=== PATIENT | female | born 1980 | race Caucasian/White ===

== ENCOUNTER 2023-10-07 17:08 | Inpatient (IN) | payer BC ==
[2023-10-07 17:30] LABS: Basophils # (A) 0.1 k/uL (0-0.2); Basophils % (A) 1 %; Eosinophils # (A) 0.3 k/uL (0-0.7); Eosinophils % (A) 3 %; HCT 39.7 % (34.0-46.0); HGB 12.5 gm/dL (11.4-16.0); Lymphocytes # (A) 2.2 k/uL (1.0-4.8); Lymphocytes % (A) 23 %; MCH 26.4 pg (25.0-35.0); MCHC 31.5 g/dL (31.0-37.0); MCV 83.6 fL (80.0-100.0); Mean Platelet Volume 7.9; Monocytes # (A) 0.5 k/uL (0-1.0); Monocytes % (A) 5 %; Neutrophils # (A) 6.3 k/uL (1.3-7.7); Neutrophils % (A) 67 %; Platelet Count 250 k/uL (150-450); RBC 4.75 m/uL (3.80-5.40); RDW 14.9 % (11.5-15.5); WBC 9.4 k/uL (3.8-10.6)
[2023-10-07 17:40] LABS: INR 0.9 (<1.2); Partial Thromboplastin Time 24.5 sec (22.0-30.0); Prothrombin Time 10.1 sec (10.0-12.5)
[2023-10-07 17:41] LABS: ALT 23 U/L (4-34); AST 31 U/L (14-36); African American GFR (CKD) >90 (>60 ml/min/1.73 sqM); Albumin 4.4 g/dL (3.5-5.0); Alkaline Phosphatase 73 U/L (38-126); Anion Gap 6 mmol/L; Blood Urea Nitrogen 5 mg/dL (7-17); Carbon Dioxide 25 mmol/L (22-30); Chloride 108 mmol/L (98-107); Glucose 110 mg/dL (74-99); Magnesium 1.7 mg/dL (1.6-2.3); Non-African American GFR(CKD) >90 (>60 ml/min/1.73 sqM); Potassium 4.1 mmol/L (3.5-5.1); Sodium 139 mmol/L (137-145); Total Bilirubin 0.5 mg/dL (0.2-1.3); Total Protein 7.2 g/dL (6.3-8.2)
[2023-10-07] MEDS ORDERED: ASPIRIN 81 MG PO STA (17:55)
--- NOTE | 2023-10-07 17:55 | ED ---
Chest Pain HPI - General Source: patient, RN notes reviewed Mode of arrival: ambulatory Limitations: no limitations <Charisse Ross - Last Filed: 10/07/23 17:53> - General Source: RN notes reviewed, old records reviewed Mode of arrival: ambulatory Limitations: no limitations - History of Present Illness MD Complaint: chest pain, other (Lightheadedness and shortness of breath) -: days(s) Pain Location: left chest Pain Radiation: jaw/teeth Severity: moderate Severity scale (1-10): 4 Improves With: nothing Worsens With: nothing Anginal Symptoms: sense of impending doom Other Symptoms: palpitations Treatments Prior to Arrival: none <Raghav Atwood - Last Filed: 10/07/23 19:30> - General Chief Complaint: Chest Pain Stated Complaint: chest pain Time Seen by Provider: 10/07/23 17:23 - History of Present Illness Initial Comments: Rafael alvarez is a 43-year-old female with no significant past medical history presents emergency department chief complaint of midsternal chest pain that started yesterday. Patient states that this pain was described as a squeezing and stabbing sensation that lasted for about 2 hours and radiated into her jaw. Patient states that the pain subsided yesterday and returned today. Was advised by her primary care provider to report to the emergency department for further evaluation. Patient states that she has a family history of heart attack in her mother and father in their 40s. (Charisse Ross) This is a 43-year-old female to the ER for evaluation patient comes from her primary care provider today and sent to the ER for evaluation, patient started with chest pain and left-sided arm pain some shortness of breath and jaw pain that started yesterday and persisted. Patient does have a family history of heart attack in her mom in early 40s (Raghav Atwood) - Related Data Home Medications Medication Instructions Recorded Confirmed No Known Home Medications 10/07/23 10/07/23 Allergies Allergy/AdvReac Type Severity Reaction Status Date / Time azithromycin Allergy Swelling Verified 10/07/23 18:59 Review of Systems ROS Other: All systems not noted in ROS Statement are negative. <Charisse Ross - Last Filed: 10/07/23 17:53> ROS Other: All systems not noted in ROS Statement are negative. <Raghav Atwood - Last Filed: 10/07/23 19:30> ROS Statement: Those systems with pertinent positive or pertinent negative responses have been documented in the HPI. EKG Findings - EKG Comments: EKG Findings:: EKG is sinus bradycardia 56 TN 143 QRS [address] depression V3 456 <Raghav Atwood - Last Filed: 10/07/23 19:30> Past Medical History Past Medical History: No Reported History History of Any Multi-Drug Resistant Organisms: None Reported Past Surgical History: No Surgical Hx Reported Past Psychological History: No Psychological Hx Reported Smoking Status: Current every day smoker Past Alcohol Use History: None Reported Past Drug Use History: Marijuana <LesliecooperCharisse - Last Filed: 10/07/23 17:53> General Exam Limitations: no limitations <Charisse Ross - Last Filed: 10/07/23 17:53> General appearance: alert, in no apparent distress Head exam: Present: atraumatic, normocephalic, normal inspection Eye exam: Present: normal appearance, PERRL, EOMI. Absent: scleral icterus, conjunctival injection, periorbital swelling ENT exam: Present: normal exam, mucous membranes moist Neck exam: Present: normal inspection. Absent: tenderness, meningismus, lymphadenopathy Respiratory exam: Present: normal lung sounds bilaterally. Absent: respiratory distress, wheezes, rales, rhonchi, stridor Cardiovascular Exam: Present: regular rate, normal rhythm, normal heart sounds. Absent: systolic murmur, diastolic murmur, rubs, gallop, clicks GI/Abdominal exam: Present: soft, normal bowel sounds. Absent: distended, tenderness, guarding, rebound, rigid Extremities exam: Present: normal inspection, full ROM, normal capillary refill. Absent: tenderness, pedal edema, joint swelling, calf tenderness Back exam: Present: normal inspection Neurological exam: Present: alert, oriented X3, CN II-XII intact Psychiatric exam: Present: normal affect, normal mood Skin exam: Present: warm, dry, intact, normal color. Absent: rash <Raghav Atwood - Last Filed: 10/07/23 19:30> - General Exam Comments Initial Comments: Visual Physical Exam Vital signs reviewed General: Well-appearing, nontoxic, no acute distress. Head: Normocephalic, atraumatic Eyes: PERRLA, EOMI ENT: Airway patent Chest: Nonlabored breathing Skin: No visual rash, normal skin tone Neuro: Alert and oriented 3 Musculoskeletal: No gross abnormalities (Stieler,Charisse) Course <Raghav Atwood - Last Filed: 10/07/23 19:30> Vital Signs 10/07/23 10/07/23 10/07/23 17:25 18:17 18:19 Temperature 99.2 F Pulse Rate 59 L 72 Pulse Rate [ 62 Social Work Administrator ] Respiratory 18 20 Rate Blood Pressure 180/95 157/100 O2 Sat by Pulse 99 99 Oximetry 10/07/23 10/07/23 10/07/23 18:30 18:47 19:00 Temperature Pulse Rate 72 Pulse Rate [ 68 Social Work Administrator ] Respiratory 20 20 Rate Blood Pressure 186/98 O2 Sat by Pulse 98 Oximetry 10/07/23 19:09 Temperature Pulse Rate 66 Pulse Rate [ Social Work Administrator ] Respiratory 20 Rate Blood Pressure 167/106 O2 Sat by Pulse 98 Oximetry - Reevaluation(s) Reevaluation #1: 10/07/23 19:29 Medical records reviewed (Raghav Atwood) Reevaluation #2: 10/07/23 19:29 Patient still with chest pain here in the ER left-sided jaw pain Patient does have multiple episodes of ventricular tachycardia nonsustained here in the emergency department with symptoms of near syncope syncope (Raghav Atwood) Reevaluation #3: 10/07/23 19:30 Patient informed of results and questions answered (Raghav Atwood) Reevaluation #4: Was pt. sent in by a medical professional or institution (, PA, RECREATIONAL SPORTS DIRECTOR, urgent care, hospital, or alf...) When possible be specific @ -no Did you speak to anyone other than the patient for history (EMS, parent, family, police, friend...)? What history was obtained from this source @ -no Did you review nursing and triage notes (agree or disagree)? Why? @ -agree Are old charts reviewed (outside hosp., previous admission, EMS record, old EKG, old radiological studies, urgent care reports/EKG's, alf records)? Report findings @ -yes Differential Diagnosis (chest pain, altered mental status, abdominal pain women, abdominal pain men, vaginal bleeding, weakness, fever, dyspnea, syncope, headache, dizziness, GI bleed, back pain, seizure, CVA, palpatations, mental health, musculoskeletal)? @ -prior EKG interpreted by me (3pts min.). @ -yes X-rays interpreted by me (1pt min.). @ -yes negative for acute disease CT interpreted by me (1pt min.). @ -no U/S interpreted by me (1pt. min.). @ -no What testing was considered but not performed or refused? (CT, X-rays, U/S, labs)? Why? @ -none What meds were considered but not given or refused? Why? @ -none Did you discuss the management of the patient with other professionals (professionals i.e. , PA, RECREATIONAL SPORTS DIRECTOR, lab, RT, psych nurse, family welfare social work professor, social science manager, teacher, business banking officer, showcase trimmer)? Give summary @ -no Was smoking cessation discussed for >3mins.? @ -no Was critical care preformed (if so, how long)? @ -no Were there social determinants of health that impacted care today? How? (Homelessness, low income, unemployed, alcoholism, drug addiction, transportation, low edu. Level, literacy, decrease access to med. care, senior care, rehab)? @ -none Was there de-escalation of care discussed even if they declined (Discuss DNR or withdrawal of care, Hospice)? DNR status @ -no What co-morbidities impacted this encounter? (DM, HTN, Smoking, COPD, CAD, Cancer, CVA, ARF, Chemo, Hep., AIDS, mental health diagnosis, sleep apnea, morbid obesity)? @ -none Was patient admitted / discharged? Hospital course, mention meds given and route, prescriptions, significant lab abnormalities, going to OR and other pertinent info. @ - Undiagnosed new problem with uncertain prognosis? @ -no Drug Therapy requiring intensive monitoring for toxicity (Heparin, Nitro, Insulin, Cardizem)? @ -no Were any procedures done? @ -no Diagnosis/symptom? @ - Acute, or Chronic, or Acute on Chronic? @ -Acute Uncomplicated (without systemic symptoms) or Complicated (systemic symptoms)? @ -Complicated Side effects of treatment? @ -no Exacerbation, Progression, or Severe Exacerbation? @ -exacerbation Poses a threat to life or bodily function? How? (Chest pain, [place], [place], pneumonia, PE, COPD, DKA, ARF, appy, cholecystitis, CVA, Diverticulitis, Homicidal, Suicidal, threat to staff... and all critical care pts) @ -yes (Raghav Atwood) Reevaluation #5: Differential Chest Pain: Stable Angina, Unstable Angina, STEMI, NSTEMI Aortic Dissection, Pneumothorax, Musculoskeletal, Esophageal Spasm GERD, Cholecystitis, Pancreatitis, Zoster, this is not meant to be an all-inclusive list. (Raghav Atwood) - Consultations Consultation #1: Spoke with cardiology who will take this patient to the catheter lab (Raghav Atwood) Consultation #2: Spoke with [facility] who agrees to admit this patient (Raghav Atwood) Chest Pain MDM <Charisse Ross - Last Filed: 10/07/23 17:53> - MDM I completed the quick note portion of this chart signed Charisse Ross PA-C (Charisse Ross) Critical Care Time Critical Care Time: Yes Total Critical Care Time: 31 <Raghav Atwood - Last Filed: 10/07/23 19:30> Disposition <Charisse Ross - Last Filed: 10/07/23 17:53> Is patient prescribed a controlled substance at d/c from ED?: No Time of Disposition: 18:35 <Raghav Atwood - Last Filed: 10/07/23 19:30> Clinical Impression: Acute non-ST elevation myocardial infarction (NSTEMI), Ventricular tachycardia, Chest pain Disposition: ADMITTED IP TO THIS HOSP Condition: Critical
--- NOTE | 2023-10-07 18:06 | XR ---
EXAMINATION TYPE: XR chest 2V DATE OF EXAM: 10/07/2023 COMPARISON: NONE HISTORY: Chest pain TECHNIQUE: Frontal and lateral views of the chest are obtained. FINDINGS: There is no focal air space opacity, pleural effusion, or pneumothorax seen. The cardiac silhouette size is within normal limits. The osseous structures are intact. IMPRESSION: No acute cardiopulmonary process.
[2023-10-07] MEDS: MORPHINE SULFATE 4 MG/ML SYRINGE IV PRN (18:40)
[2023-10-07] MEDS: HEPARIN SOD,PORK IN 0.45% NACL 25,000 UNIT in 0.45% NACL 1 250ML.BAG IV SCH (18:41)
[2023-10-07] MEDS: HEPARIN SODIUM 1,000 UN/ML (10ML VL) IV ONE ×2 (18:43→19:51)
[2023-10-07] MEDS: NITROGLYCERIN OINT 1 INCH/GM PACKET TOPICAL STA (18:45)
[2023-10-07] MEDS: AMIODARONE 360 MG in DEXTROSE 5% IN WATER 200 ML IV ONE (18:51)
[2023-10-07] MEDS: DEXTROSE 5% IN WATER 100 ML with AMIODARONE 150 MG IV ONE (18:51)
[2023-10-07] MEDS: NITROGLYCERIN SL TABS 0.4 MG TAB SUBLINGUAL PRN (19:05)
[2023-10-07] MEDS: ASPIRIN 81 MG PO STA (19:12)
[2023-10-07] MEDS ORDERED: HEPARIN SODIUM 1,000 UN/ML (10ML VL) ONE (19:28)
[2023-10-07] MEDS ORDERED: fentaNYL (PF) 50 MCG/ML 2 ML AMP ONE (19:28)
[2023-10-07] MEDS ORDERED: VERAPAMIL 2.5 MG/ML 2 ML AMP ONE (19:28)
[2023-10-07] MEDS ORDERED: LIDOCAINE 1% INJ 10MG/ML (20 ML MDV) ONE (19:28)
--- NOTE | 2023-10-07 19:40 | P.CRDCN ---
History of Present Illness Consult date: 10/07/23 History of present illness: History of Present Illness: The patient is a 43-year-old female with a history of chronic tobacco use and a strong family history of premature CAD in her mother at the age of 42 who has not been followed by a physician on a regular basis who started complaining of chest discomfort yesterday associated with dyspnea, at rest. The pain got be tter to recur today. She was seen by Dr. Tovar and referred to the emergency room. In the emergency room she had a run of nonsustained VT and mild elevation of the troponin. She is average in her exercise tolerance and has no exertional chest discomfort on a regular basis and no change in her breathing. She has no history of PND, orthopnea or peripheral edema. She has no history of dizziness, palpitations or syncope. Her EKG showed ST segment depression anteriorly and inferior leads. In the cardiac catheterization laboratory she still has some discomfort, better. Medications: None Review of Systems: Respiratory: No history of asthma, bronchitis or recent cough. GI: No nausea or vomiting . No history of peptic ulcer disease. No recent GI bleed. : No hematuria or dysuria. Nervous System: No stroke or seizure. Physical Examination: 43-year-old female, alert oriented no apparent distress,Blood pressure 186/98, Heart rate 70 Head: Normocephalic. Eyes: Sclerae nonicteric. Neck: Good carotid upstroke, no bruit, no jugular venous distention. Lungs: Clear to auscultation. Heart: Regular rate and rhythm, S1-S2, no S3, no rub. No murmur. Abdomen: Soft nontender, positive bowel sounds no organomegaly. Extremities: No edema, intact distal pulses. Labs: Potassium 4.1, BUN 5, creatinine 1.56, hemoglobin 12.5, troponin 1.820. Chest x-ray with no acute infiltrate EKG: Sinus mechanism with mild ST segment depression in V2 to V6 and in the inferior leads Impression: 1. Non-STEMI, rule out posterior myocardial infarction 2. Chronic tobacco use 3. Episodes of nonsustained VT 4. Strong family history of premature CAD Plan: 1. I would recommend to proceed with coronary angiography, the procedure as well as the risks and the complications were discussed with the patient 2. Obtain an echocardiogram with Doppler 3. Smoking cessation 4. Depending on the results of her cardiac catheterization further recommendations will be made 5. Thank you for this consult we will follow with you Past Medical History Past Medical History: No Reported History History of Any Multi-Drug Resistant Organisms: None Reported Past Surgical History: No Surgical Hx Reported Past Psychological History: No Psychological Hx Reported Smoking Status: Current every day smoker Past Alcohol Use History: None Reported Past Drug Use History: Marijuana Medications and Allergies Home Medications Medication Instructions Recorded Confirmed Type No Known Home Medications 10/07/23 10/07/23 History Allergies Allergy/AdvReac Type Severity Reaction Status Date / Time azithromycin Allergy Swelling Verified 10/07/23 18:59 Physical Exam Vitals: Vital Signs Temp Pulse Pulse Resp BP Pulse Ox 10/07/23 19:09 66 20 167/106 98 10/07/23 19:00 20 10/07/23 18:47 72 20 186/98 98 10/07/23 18:30 68 10/07/23 18:19 62 10/07/23 18:17 72 20 157/100 99 10/07/23 17:25 99.2 F 59 L 18 180/95 99 Intake and Output 10/07/23 10/07/23 10/07/23 06:59 14:59 22:59 Other: Weight 86.636 kg Results 10/07/23 17:24 10/07/23 17:24 Cardiac Enzymes 10/07/23 10/07/23 Range/Units 17:24 17:24 AST 31 (14-36) U/L Troponin I 1.820 H* (0.000-0.034) ng/mL Coagulation 10/07/23 Range/Units 17:24 PT 10.1 (10.0-12.5) sec APTT 24.5 (22.0-30.0) sec CBC 10/07/23 Range/Units 17:24 WBC 9.4 (3.8-10.6) k/uL RBC 4.75 (3.80-5.40) m/uL Hgb 12.5 (11.4-16.0) gm/dL Hct 39.7 (34.0-46.0) % Plt Count 250 (150-450) k/uL Comprehensive Metabolic Panel 10/07/23 Range/Units 17:24 Sodium 139 (137-145) mmol/L Potassium 4.1 (3.5-5.1) mmol/L Chloride 108 H (98-107) mmol/L Carbon Dioxide 25 (22-30) mmol/L BUN 5 L (7-17) mg/dL Creatinine 0.56 (0.52-1.04) mg/dL Glucose 110 H (74-99) mg/dL Calcium 9.0 (8.4-10.2) mg/dL AST 31 (14-36) U/L ALT 23 (4-34) U/L Alkaline Phosphatase 73 (38-126) U/L Total Protein 7.2 (6.3-8.2) g/dL Albumin 4.4 (3.5-5.0) g/dL Current Medications Generic Name Dose Route Start Last Admin Trade Name Freq PRN Reason Stop Dose Admin Aspirin 325 mg 10/08/23 09:00 Aspirin 325 Mg Tab PO DAILY [facility] Heparin Sodium/Sodium Chloride 250 mls @ 9.963 mls/hr 10/07/23 18:30 10/07/23 18:41 25,000 unit/ Sodium Chloride IV 11.5 units/kg/hr .Q24H MANSOOR 9.963 mls/hr Administration Protocol 11.5 UNITS/KG/HR Amiodarone HCl 360 mg/ 200 mls @ 33.333 mls/hr 10/07/23 19:00 10/07/23 18:51 Dextrose/Water IV 10/08/23 00:59 1 mg/min .Q6H ONE 33.333 mls/hr Administration Protocol 1 MG/MIN Amiodarone HCl 450 mg/ 250 mls @ 16.667 mls/hr 10/08/23 01:00 Dextrose/Water IV 10/08/23 18:59 .Q15H MANSOOR Protocol 0.5 MG/MIN Metoprolol Tartrate 25 mg 10/07/23 21:00 Metoprolol Tartrate 25 Mg Tab PO BID [facility] Morphine Sulfate 4 mg 10/07/23 18:27 10/07/23 18:40 Morphine Sulfate 4 Mg/Ml Syringe IV 4 mg Q4HR PRN Administration Chest Pain Nitroglycerin 0.4 mg 10/07/23 18:27 10/07/23 19:08 Nitroglycerin Sl Tabs 0.4 Mg Tab SUBLINGUAL 0.4 mg Q5M PRN Administration Chest Pain Nitroglycerin 1 inch 10/08/23 00:00 Nitroglycerin Oint 1 Inch/Gm Packet TOPICAL Q6HR MAN[place]OR Intake and Output 10/07/23 10/07/23 10/07/23 06:59 14:59 22:59 Other: Weight 86.636 kg Patient Weight 10/08/23 06:59 Weight 86.636 kg 10/07/23 17:24 10/07/23 17:24
[2023-10-07] MEDS: LIDOCAINE 1% INJ 10MG/ML (20 ML MDV) SQ ONE (19:43)
[2023-10-07] MEDS: fentaNYL (PF) 50 MCG/ML 2 ML AMP IVP ONE (19:43)
[2023-10-07] MEDS: VERAPAMIL SYRINGE (5 MG/10 ML) INTRAARTER ONE (19:44)
[2023-10-07] MEDS: SODIUM CHLORIDE 0.9% 1,000 ML IV ONE (19:50)
[2023-10-07] MEDS: MIDAZOLAM 2 MG/2 ML VIAL IVP ONE (19:51)
[2023-10-07] MEDS ORDERED: PRASUGREL 10 MG TAB ONE ×2 (20:05→20:06)
[2023-10-07] MEDS: IOPAMIDOL-370 100ML BTL INJ ONE ×2 (20:07→20:28)
[2023-10-07] MEDS: PRASUGREL 10 MG TAB PO ONE (20:08)
[2023-10-07] MEDS ORDERED: NITROGLYCERIN SL TABS 0.4 MG TAB SUBLINGUAL PRN (20:46)
[2023-10-07] MEDS ORDERED: ZOLPIDEM 5 MG TAB PO PRN (20:46)
[2023-10-07] MEDS ORDERED: MAG HYDROX/AL HYDROX/SIMETH 30 ML CUP PO PRN (20:46)
[2023-10-07] MEDS ORDERED: RX INFO: IV CONTRAST WAS GIVEN 1 EACH MISC MISCELLANE PRN (20:46)
[2023-10-07] MEDS ORDERED: ATROPINE SULFATE 0.1 MG/ML 10ML SYRINGE IV PRN (20:46)
--- NOTE | 2023-10-07 20:56 | P.CARDCATH ---
Date of Procedure: 10/07/23 Description of Procedure: Cardiac Catheterization: The patient is a 43-year-old female with known history of chronic tobacco use and a strong family history of premature CAD who presented with symptoms of chest discomfort and had episodes of nonsustained VT. She had mild troponin elevation and ST segment depression consistent with non-STEMI. Recommendations were made regarding cardiac catheterization, the risks and the complications were discussed with the patient who is in full understanding and agreement. Procedure Description: Patient was brought to cardiac cath lab radiology technologist in fasting semi-sedated state after receiving Fentanyl and Benadryl achieiving moderate conscious sedated state. Using Xylocaine Anesthesia and modified Seldinger technique, a 6-Romanian sheath was introduced in the right radial artery . Subsequently, selective coronary angiography was performed using a 5-Romanian 3.5 bend right Albina and 6 Romanian CLS 3.5 guiding catheter. Multiple views of the coronary artery including hemiaxial views were obtained. The right Albina catheter was used to cross the aortic valve and LVEDP was calculated. PCI: Using the CLS 3.5 guiding catheter the left main was cannulated subsequently a 0.014 BMW J-wire was positioned in the distal OM. A 2.5 x 12 mm trek balloon was advanced and 2 inflation at 8 hiren were done. Subsequently a [employer]ing [place] eye IVUS catheter was introduced and images were obtained and revealed the distal lumen between 2.75 and 3.0 mm. At that time a 2.75 x 18 mm Xience carlos point stent was advanced and deployed at 16 hiren. Repeat IVUS imaging was performed and a 2.75 x 15 mm NC trek balloon was advanced and 1 inflation at 10 hiren was done. After that the wire was removed and images were obtained and revealed stable successful stenting. Following that, catheter and sheath were removed. Hemostasis was obtained with deployment of vascular band . There was no immediate complication. Patient was returned to room in stable condition. Of note, the patient received a total of 9000 units of intravenous heparin as well as intra-arterial verapamil. She received an oral loading dose of Effient. Her ACT was monitored. She had EKG changes and chest discomfort with the inflations that resolved at the end of the procedure. Findings: Left main: This is a large size vessel, bifurcating into LAD and left circumflex, left main has no obstructive disease. LAD: This is a large size vessel, reaching to the apex giving rise to a large diagonal branch in the midsegment. The mid LAD has a 30 to 40% plaque involving the takeoff of the diagonal branch. The apical segment of the LAD has an 80% stenosis. Beyond that the vessel is small in caliber. Left circumflex: This is a large nondominant vessel giving rise to 2 obtuse marginal branch. The first 1 is large in caliber. The first obtuse marginal branch has a 95% stenosis in the proximal segment. The proximal left circumflex has mild plaque of 20%. RCA: This is a large dominant vessel bifurcating distally to PDA and PLV. The proximal right coronary artery has 10 to 20% plaque. The takeoff of the PDA has a tubular 70% stenosis the rest of the vessel has no high-grade stenosis Left Ventriculogram: Not performed Hemodynamics: There was no gradient across the aortic valve, LVEDP was 18-20 mmHg Conclusion: 1. Severe stenosis in the first OM 2. Severe stenosis in the very distal apical LAD 3. Moderate significant disease at the takeoff of the PDA 4. Successful stenting of OM1 with reduction of stenosis from 95% to less then 5% with IVUS imaging and NENITA-3 flow. Recommendations: The patient will continue on aspirin and Effient for 1 year without any interruption in addition to aggressive coronary risks modification, maintaining LAD below 70 mg/dL and smoking cessation. The findings and the recommendations were discussed with the patient and the family and they were in full understanding and agreement. Duration of sedation is 44 minutes.
[2023-10-07] MEDS: METOPROLOL TARTRATE 25 MG TAB PO SCH (21:45)
[2023-10-07] MEDS: ATORVASTATIN 80 MG TAB PO SCH (21:45)
[2023-10-07] MEDS: ONDANSETRON 4 MG/2 ML VIAL IVP PRN (21:46)
[2023-10-07 22:00] VITALS: RESP 16
[2023-10-08] MEDS ORDERED: NITROGLYCERIN OINT 1 INCH/GM PACKET TOPICAL SCH
[2023-10-08] MEDS: SODIUM CHLORIDE 0.9% 1,000 ML in EMPTY BAG 1 BAG IV SCH (00:38)
[2023-10-08] MEDS: AMIODARONE 450 MG in DEXTROSE 5% IN WATER 250 ML IV SCH (01:18)
[2023-10-08] MEDS: ASPIRIN 81 MG PO SCH (08:57)
[2023-10-08] MEDS: PRASUGREL 10 MG TAB PO SCH (08:58)
[2023-10-08] MEDS ORDERED: ASPIRIN 325 MG TAB PO SCH (09:00)
[2023-10-08 09:25] LABS: African American GFR (CKD) >90 (>60 ml/min/1.73 sqM); Anion Gap 6 mmol/L; Blood Urea Nitrogen 4 mg/dL (7-17); Calcium 8.8 mg/dL (8.4-10.2); Carbon Dioxide 21 mmol/L (22-30); Chloride 110 mmol/L (98-107); Glucose 146 mg/dL (74-99); Non-African American GFR(CKD) >90 (>60 ml/min/1.73 sqM); Sodium 137 mmol/L (137-145)
[2023-10-08 09:28] LABS: Chol/HDL Ratio 5.43 Ratio
[2023-10-08] MEDS ORDERED: NITROGLYCERIN OINT 1 INCH/GM PACKET TOPICAL PRN (10:29)
[2023-10-08] MEDS: LOSARTAN 25 MG TAB PO SCH (11:17)
[2023-10-08] MEDS: amLODIPine 10 MG TAB PO SCH (11:17)
--- NOTE | 2023-10-08 12:05 | CA ---
Transthoracic Echo Report Name: Jordana Alford Age: 43 Gender: F : 1980 Exam Date: 10/08/2023 08:16 Exam Location: [facility] Ht (in): 64 Wt (lb): 191 Ordering Physician: David Don MD ([id number]) Attending/Referring Phys: Media Professional Eva Irving RDCS Procedure CPT: Indications: [place] Cardiac Hx: Technical Quality: Fair Contrast 1: Total Dose (mL): Contrast 2: Total Dose (mL): MEASUREMENTS (Male / Female) Normal Values 2D ECHO LV Diastolic Diameter PLAX 4.4 cm 4.2 - 5.9 / 3.9 - 5.3 cm LV Systolic Diameter PLAX 2.3 cm IVS Diastolic Thickness 1.0 cm 0.6 - 1.0 / 0.6 - 0.9 cm LVPW Diastolic Thickness 1.0 cm 0.6 - 1.0 / 0.6 - 0.9 cm LV Relative Wall Thickness 0.4 RV Internal Dim ED PLAX 2.6 cm LA Systolic Diameter LX 3.4 cm 3.0 - 4.0 / 2.7 - 3.8 cm LV Diastolic Volume MOD BP 66.3 cm??? 67 - 155 / 56 - 104 cm??? LV Systolic Volume MOD BP 24.4 cm??? 22 - 58 / 19 - 49 cm??? LV Ejection Fraction MOD BP 63.1 % >= 55 % LV Cardiac Index MOD BP 1644.7 cm???/min???m??? LV Diastolic Volume MOD 4C 73.2 cm??? LV Systolic Volume MOD 4C 23.0 cm??? LV Ejection Fraction MOD 4C 68.6 % LV Cardiac Index MOD 4C 1969.8 cm???/min???m??? LV Diastolic Length 4C 7.5 cm LV Systolic Length 4C 5.7 cm LV Diastolic Volume MOD 2C 56.1 cm??? LV Systolic Volume MOD 2C 22.7 cm??? LV Ejection Fraction MOD 2C 59.5 % LV Cardiac Index MOD 2C 1310.9 cm???/min???m??? LV Diastolic Length 2C 6.8 cm LV Systolic Length 2C 5.0 cm LA Volume 31.8 cm??? 18 - 58 / 22 - 52 cm??? LA Volume Index 15.8 cm???/m??? 16 - 28 cm???/m??? M-MODE Aortic Root Diameter MM 2.7 cm LA Systolic Diameter MM 3.1 cm LA Ao Ratio MM 1.1 AV Cusp Separation MM 1.7 cm DOPPLER AV Peak Velocity 157.6 cm/s AV Peak Gradient 9.9 mmHg MV Area PHT 3.3 cm??? Mitral E Point Velocity 108.8 cm/s Mitral A Point Velocity 71.2 cm/s Mitral E to A Ratio 1.5 MV Deceleration Time 229.5 ms TR Peak Velocity 255.3 cm/s TR Peak Gradient 26.1 mmHg Right Ventricular Systolic Press 36.1 mmHg FINDINGS Left Ventricle Left ventricular ejection fraction is estimated at 55-60%. No obvious regional wall motion abnormalities. Normal left ventricular diastolic filling pattern. Left ventricular cavity size normal. Left ventricular wall thickness normal. Right Ventricle Normal right ventricular size and function. Mild pulmonary hypertension. Right Atrium Normal right atrial size. Left Atrium Normal left atrial size. Mitral Valve Structurally normal mitral valve. No mitral stenosis. Mild mitral regurgitation. Aortic Valve Trileaflet aortic valve. No aortic valve stenosis or regurgitation. Tricuspid Valve Structurally normal tricuspid valve. Mild tricuspid regurgitation. Pulmonic Valve Structurally normal pulmonic valve. No pulmonic stenosis. No pulmonic regurgitation. Pericardium No pericardial or pleural effusion. Aorta Normal size aortic root and proximal ascending aorta. CONCLUSIONS Normal LV size and systolic function Previewed by: Dr. Gavin Newton MD (Electronically Signed) Final Date: 08 October 2023 12:04
[2023-10-08 13:30] VITALS: BMI 32.8
[2023-10-08 15:48] LABS: Chol/HDL Ratio 5.69 Ratio; LDL Cholesterol,Calculated 128.9 mg/dL (0.0-131.0)
--- NOTE | 2023-10-08 16:40 | P.HPIM ---
History of Present Illness H&P Date: 10/08/23 Chief Complaint: Chest pain 43-year-old female with no significant past medical history presents emergency department chief complaint of midsternal chest pain that started yesterday. Patient states that this pain was described as a squeezing and stabbing sensation that lasted for about 2 hours and radiated into her jaw. Patient states that the pain subsided yesterday and returned today. Was advised by her primary care provider to report to the emergency department for further evaluation. Patient states that she has a family history of heart attack in her mother and father in their 40s. Blood work completed in ED reveals a WBC of 9.4, hemoglobin of 12.5 and platelet count of 250, sodium 139, potassium 4.1, BUNs/creatinine of 5/0.56 and troponin is elevated at 1.820 and continue to trend down to 1.790 and 1.450 EKG Findings:: EKG is sinus bradycardia 56 MI 143 QRS [address] depression V3 456 Chest x-ray is negative for any acute process CT of the chest is completed to rule out PE and is negative for any acute process Review of Systems REVIEW OF SYSTEMS: CONSTITUTIONAL: No fever, no malaise, no fatigue. HEENT: No recent visual problems or hearing problems. Denied any sore throat. CARDIOVASCULAR: No chest pain, orthopnea, PND, no palpitations, no syncope. PULMONARY: No shortness of breath, no cough, no hemoptysis. GASTROINTESTINAL: No diarrhea, no nausea, no vomiting, no abdominal pain. NEUROLOGICAL: No headaches, no weakness, no numbness. HEMATOLOGICAL: Denies any bleeding or petechiae. GENITOURINARY: Denies any burning micturition, frequency, or urgency. MUSCULOSKELETAL/RHEUMATOLOGICAL: Denies any joint pain, swelling, or any muscle pain. ENDOCRINE: Denies any polyuria or polydipsia. The rest of the 14-point review of systems is negative. Past Medical History Past Medical History: No Reported History History of Any Multi-Drug Resistant Organisms: None Reported Past Surgical History: No Surgical Hx Reported Past Psychological History: No Psychological Hx Reported Smoking Status: Current every day smoker Past Alcohol Use History: None Reported Past Drug Use History: Marijuana - Past Family History Father Family Medical History: Congestive Heart Failure (CHF), Diabetes Mellitus, Hyperlipidemia, Hypertension Mother Additional Family Medical History / Comment(s): multiple cardiac stents placed Medications and Allergies Home Medications Medication Instructions Recorded Confirmed Type No Known Home Medications 10/07/23 10/07/23 History Allergies Allergy/AdvReac Type Severity Reaction Status Date / Time azithromycin Allergy Swelling Verified 10/07/23 18:59 Physical Exam Vitals: Vital Signs Temp Pulse Pulse Resp BP BP Pulse Ox 10/08/23 09:12 97 10/08/23 08:50 98.3 F 54 L 16 190/98 97 10/08/23 04:00 98.1 F 50 L 16 117/75 99 10/08/23 02:00 55 L 16 10/08/23 00:31 55 L 16 128/78 99 10/07/23 23:31 98.4 F 70 16 132/75 99 10/07/23 22:31 52 L 16 147/78 98 10/07/23 22:01 60 18 120/80 98 10/07/23 21:31 58 L 16 130/79 100 10/07/23 21:15 80 16 146/78 98 10/07/23 20:59 98.9 F 69 18 122/75 99 10/07/23 20:00 58 L 10/07/23 19:27 84 16 168/96 97 10/07/23 19:09 66 20 167/106 98 10/07/23 19:00 20 10/07/23 18:47 72 20 186/98 98 10/07/23 18:30 68 10/07/23 18:19 62 10/07/23 18:17 72 20 157/100 99 10/07/23 17:25 99.2 F 59 L 18 180/95 99 FiO2 10/08/23 09:12 21 10/08/23 08:50 10/08/23 04:00 10/08/23 02:00 10/08/23 00:31 10/07/23 23:31 10/07/23 22:31 10/07/23 22:01 10/07/23 21:31 10/07/23 21:15 10/07/23 20:59 10/07/23 20:00 10/07/23 19:27 10/07/23 19:09 10/07/23 19:00 10/07/23 18:47 10/07/23 18:30 10/07/23 18:19 10/07/23 18:17 10/07/23 17:25 Intake and Output 10/07/23 10/08/23 10/08/23 22:59 06:59 14:59 Intake Total 1230 240 Balance 1230 240 Intake: IV 150 Oral 1080 240 Other: Voiding Method Toilet Toilet # Voids 1 Weight 86.636 kg General appearance: alert, in no apparent distress Head exam: Present: atraumatic, normocephalic, normal inspection Eye exam: Present: normal appearance, PERRL, EOMI. Absent: scleral icterus, conjunctival injection, periorbital swelling ENT exam: Present: normal exam, mucous membranes moist Neck exam: Present: normal inspection. Absent: tenderness, meningismus, lymphadenopathy Respiratory exam: Present: normal lung sounds bilaterally. Absent: respiratory distress, wheezes, rales, rhonchi, stridor Cardiovascular Exam: Present: regular rate, normal rhythm, normal heart sounds. Absent: systolic murmur, diastolic murmur, rubs, gallop, clicks GI/Abdominal exam: Present: soft, normal bowel sounds. Absent: distended, tenderness, guarding, rebound, rigid Extremities exam: Present: normal inspection, full ROM, normal capillary refill. Absent: tenderness, pedal edema, joint swelling, calf tenderness Back exam: Present: normal inspection Neurological exam: Present: alert, oriented X3, CN II-XII intact Psychiatric exam: Present: normal affect, normal mood Skin exam: Present: warm, dry, intact, normal color. Absent: rash Results CBC & Chem 7: 10/07/23 17:24 10/08/23 08:33 Labs: Abnormal Lab Results - Last 24 Hours (Table) 10/07/23 10/07/23 10/07/23 Range/Units 17:24 17:24 18:56 APTT (22.0-30.0) sec Chloride 108 H (98-107) mmol/L Carbon Dioxide (22-30) mmol/L BUN 5 L (7-17) mg/dL Glucose 110 H (74-99) mg/dL Troponin I 1.820 H* 1.790 H* (0.000-0.034) ng/mL Triglycerides (0.00-149.00) mg/dL Cholesterol (0.00-200.00) mg/dL LDL Cholesterol, Calc (0.0-131.0) mg/dL HDL Cholesterol (40.00-60.00) mg/dL 10/08/23 10/08/23 10/08/23 Range/Units 00:33 00:33 00:33 APTT 36.0 H (22.0-30.0) sec Chloride (98-107) mmol/L Carbon Dioxide (22-30) mmol/L BUN (7-17) mg/dL Glucose (74-99) mg/dL Troponin I 1.450 H* (0.000-0.034) ng/mL Triglycerides 158.00 H (0.00-149.00) mg/dL Cholesterol 203.00 H (0.00-200.00) mg/dL LDL Cholesterol, Calc 134.0 H (0.0-131.0) mg/dL HDL Cholesterol 37.40 L (40.00-60.00) mg/dL 10/08/23 Range/Units 08:33 APTT (22.0-30.0) sec Chloride 110 H (98-107) mmol/L Carbon Dioxide 21 L (22-30) mmol/L BUN 4 L (7-17) mg/dL Glucose 146 H (74-99) mg/dL Troponin I (0.000-0.034) ng/mL Triglycerides (0.00-149.00) mg/dL Cholesterol (0.00-200.00) mg/dL LDL Cholesterol, Calc (0.0-131.0) mg/dL HDL Cholesterol (40.00-60.00) mg/dL Thrombosis Risk Factor Assmnt - Choose All That Apply Any of the Below Risk Factors Present?: Yes Each Factor Represents 1 point: Age 41-60 years Other Risk Factors: No Other congenital or acquired thrombophilia - If yes, enter type in comment: No Thrombosis Risk Factor Assessment Total Risk Factor Score: 1 Thrombosis Risk Factor Assessment Level: Low Risk Assessment and Plan Assessment: 1. Non-ST elevation PR -- Patient received IV heparin, aspirin, statins and beta-blockers -- Admitted for further cardiac evaluation 2. Nonsustained V. tach; patient has been placed on telemetry; 2D echo is ordered and pending 3. Chronic tobacco use; counseling done for smoking cessation 4. Obesity; counseling done for need for weight reduction 5. Family history of premature coronary artery disease DVT prophylaxis; SCDs/IV heparin Status; full code
--- NOTE | 2023-10-08 22:36 | PN ---
PROGRESS NOTE SUBJECTIVE: Jordana is a 43-year-old lady, who presented to hospital late yesterday evening with acute [id number] elevation TN with episodes of nonsustained VT and underwent emergent cardiac catheterization by Dr. Don. Her cardiac catheterization revealed severe stenosis involving 1st OM, severe stenosis involving apical LAD, and she underwent angioplasty of the OM branch. At the time of my evaluation this morning, she is chest pain-free and hemodynamically stable. An EKG shows sinus bradycardia. She is on aspirin, Lipitor, Lopressor, and Effient. Blood pressure is poorly controlled. Hence, I am adding Norvasc in nitroglycerin paste. PHYSICAL EXAMINATION: VITAL SIGNS: Afebrile, heart rate is 54 beats, blood pressure is 190/92, respiratory rate 16, O2 saturation is 97%. CHEST: Good air entry bilaterally. HEART: Reveals first and second heart sounds. No gallop, no murmur. ABDOMEN: Soft. EXTREMITIES: Did not reveal any edema. Peripheral pulses are felt. ASSESSMENT AND PLAN: 1. Acute non ST-segment elevation TN, status post catheterization and angioplasty. 2. Uncontrolled hypertension. I adjusted her medications. I will follow her echo results. Hopefully, home over the next 48 hours. MMODL / IJN: [id number] /
[2023-10-09 07:58] LABS: Basophils # (A) 0.1 k/uL (0-0.2); Basophils % (A) 1 %; Eosinophils # (A) 0.2 k/uL (0-0.7); Eosinophils % (A) 2 %; HCT 38.9 % (34.0-46.0); HGB 11.8 gm/dL (11.4-16.0); Hypochromasia Slight; Lymphocytes # (A) 1.9 k/uL (1.0-4.8); Lymphocytes % (A) 21 %; MCH 25.7 pg (25.0-35.0); MCHC 30.2 g/dL (31.0-37.0); MCV 85.1 fL (80.0-100.0); Monocytes # (A) 0.5 k/uL (0-1.0); Monocytes % (A) 5 %; Neutrophils # (A) 6.4 k/uL (1.3-7.7); Neutrophils % (A) 70 %; Platelet Count 219 k/uL (150-450); RBC 4.58 m/uL (3.80-5.40); RDW 14.6 % (11.5-15.5); WBC 9.2 k/uL (3.8-10.6)
[2023-10-09 08:15] LABS: African American GFR (CKD) >90 (>60 ml/min/1.73 sqM); Anion Gap 7 mmol/L; Blood Urea Nitrogen 6 mg/dL (7-17); Carbon Dioxide 22 mmol/L (22-30); Chloride 108 mmol/L (98-107); Glucose 146 mg/dL (74-99); Non-African American GFR(CKD) >90 (>60 ml/min/1.73 sqM); Sodium 137 mmol/L (137-145)
[2023-10-09 09:04] VITALS: TEMP 98.2
[2023-10-09] MEDS: LOSARTAN 25 MG TAB PO STA (09:41)
--- NOTE | 2023-10-09 11:05 | P.PN ---
Subjective Progress Note Date: 10/09/23 History of Present Illness: The patient is a 43-year-old female with a history of chronic tobacco use and a strong family history of premature CAD in her mother at the age of 42 who has not been followed by a physician on a regular basis who started complaining of chest discomfort yesterday associated with dyspnea, at rest. The pain got better to recur today. She was seen by Dr. Tovar and referred to the emergency room. In the emergency room she had a run of nonsustained VT and mild elevation of the troponin. She is average in her exercise tolerance and has no exertional chest discomfort on a regular basis and no change in her breathing. She has no history of PND, orthopnea or peripheral edema. She has no history of dizziness, palpitations or syncope. Her EKG showed ST segment depression anteriorly and inferior leads. In the cardiac catheterization laboratory she still has some discomfort, better. Medications: None Labs: Potassium 4.1, BUN 5, creatinine 1.56, hemoglobin 12.5, troponin 1.820. Chest x-ray with no acute infiltrate EKG: Sinus mechanism with mild ST segment depression in V2 to V6 and in the inferior leads 10/08 Echocardiogram reveals EF of 55 to 60%. Cardiac catheterization performed on 10/[address] Don reveals severe stenosis of the first OM, severe stenosis in the very distal apical LAD, moderate significant disease at the takeoff of the PDA, successful stenting of the OM1. The patient is seen today in follow-up. Echocardiogram results reviewed with th e patient. Patient voices that she is quite upset thinking that is partly related to not having cigarettes. Blood pressure 164/83, heart rate in the 60s, pulse ox 98% on room air. Repeat blood work reveals hemoglobin 11.8. Potassium 4, BUN 16 creatinine 0.65. Physical Examination: 43-year-old female, alert oriented no apparent distress Head: Normocephalic. Eyes: Sclerae nonicteric. Neck: Good carotid upstroke, no bruit, no jugular venous distention. Lungs: Clear to auscultation. Heart: Regular rate and rhythm, S1-S2, no S3, no rub. No murmur. Abdomen: Soft nontender, positive bowel sounds no organomegaly. Extremities: No edema, intact distal pulses. Impression: 1. Non-STEMI, status post stenting of the OM1 2. Chronic tobacco use 3. Episodes of nonsustained VT 4. Strong family history of premature CAD Plan: Continue current cardiac medications. New prescriptions have been sent to her pharmacy. Increase losartan to 50 mg daily Smoking cessation Patient is cleared from cardiology for discharge and may follow-up with Dr. Don in 1 week. Nurse practitioner note has been reviewed, I agree with documented findings and plan of care. Patient was seen and examined. Objective - Vital Signs Vital signs: Vital Signs Temp 98.2 F 10/09/23 08:45 Pulse 61 10/09/23 08:45 Resp 16 10/09/23 08:45 BP 164/83 10/09/23 08:45 Pulse Ox 98 10/09/23 08:45 FiO2 21 10/08/23 09:12 Intake & Output 10/08/23 10/09/23 10/09/23 18:59 06:59 18:59 Intake Total 684 240 Balance 684 240 Weight 86.636 kg Intake: Oral 684 240 Other: Voiding Method Toilet # Bowel Movements 0 - Labs CBC & Chem 7: 10/09/23 07:18 10/09/23 07:18 Labs: Abnormal Lab Results - Last 24 Hours (Table) 10/08/23 10/08/23 10/09/23 Range/Units 00:33 08:33 07:18 MCHC 30.2 L (31.0-37.0) g/dL Chloride (98-107) mmol/L BUN (7-17) mg/dL Glucose (74-99) mg/dL Triglycerides 158.00 H 159.00 H (0.00-149.00) mg/dL Cholesterol 203.00 H (0.00-200.00) mg/dL LDL Cholesterol, Calc 134.0 H (0.0-131.0) mg/dL HDL Cholesterol 37.40 L 34.30 L (40.00-60.00) mg/dL 10/09/23 Range/Units 07:18 MCHC (31.0-37.0) g/dL Chloride 108 H (98-107) mmol/L BUN 6 L (7-17) mg/dL Glucose 146 H (74-99) mg/dL Triglycerides (0.00-149.00) mg/dL Cholesterol (0.00-200.00) mg/dL LDL Cholesterol, Calc (0.0-131.0) mg/dL HDL Cholesterol (40.00-60.00) mg/dL
[2023-10-09 12:27] VITALS: BP 144/82; PULSE 75
[2023-10-10] MEDS ORDERED: LOSARTAN 50 MG TAB PO SCH (09:00)
== END 2023-10-09 13:37 | disposition home or self-care (01) | DRG 322 ==
LOC: EC 17:08 → 3SCARD 18:28
PROVIDERS: ADMIT Hospitalist; ATTEND Hospitalist
PROC: 027034Z Dilation of Coronary Artery, One Artery with Drug-eluting Intraluminal Device, Percutaneous Approach (ICD-10-PCS; principal; 2023-10-07 19:23)
PROC: 4A023N7 Measurement of Cardiac Sampling and Pressure, Left Heart, Percutaneous Approach (ICD-10-PCS; principal; 2023-10-07 19:23)
PROC: B2111ZZ Fluoroscopy of Multiple Coronary Arteries using Low Osmolar Contrast (ICD-10-PCS; principal; 2023-10-07 19:23)
PROC: B240ZZ3 Ultrasonography of Single Coronary Artery, Intravascular (ICD-10-PCS; principal; 2023-10-07 19:23)
DX: I21.4 Non-ST elevation (NSTEMI) myocardial infarction (principal); I47.20 Ventricular tachycardia, unspecified; I25.10 Atherosclerotic heart disease of native coronary artery without angina pectoris; Z79.82 Long term (current) use of aspirin; Z71.6 Tobacco abuse counseling; F17.200 Nicotine dependence, unspecified, uncomplicated; Z82.49 Family history of ischemic heart disease and other diseases of the circulatory system; Z28.310 Unvaccinated for COVID-19; Z28.9 Immunization not carried out for unspecified reason; E66.9 Obesity, unspecified; Z71.3 Dietary counseling and surveillance; Z68.32 Body mass index [BMI] 32.0-32.9, adult
CPT/HCPCS: 36415; 71046; 80048; 80053; 80061; 83735; 84484; 85025; 85610; 85730; 92978; 93005; 93306; 93458; 94760; 96365; 96368; 96375; 99291